=== PATIENT | male | born 1940 | race Caucasian/White ===

== ENCOUNTER 2023-02-26 18:38 | Observation (INO) | payer MEDICARE ==
--- NOTE | 2023-02-26 19:22 | ED ---
Fall HPI - General Chief Complaint: Fall Stated Complaint: Syncope Time Seen by Provider: 02/26/23 18:40 Source: EMS Mode of arrival: EMS - History of Present Illness Initial Comments: 82-year-old male past medical history significant for hypertension presenting to the ED with a chief complaint of fall. Patient states he was helping his son move furniture earlier today. States that they were on a dirt road which was muddy causing him to slip and fall onto the ground. Patient notes that he hurt his left ankle due to the fall. Denies head injury at this time. Patient is n ot on blood thinners. States after he got up and continued to help his son move furniture however patient stated that he felt "odd". States that after helping his son move furniture he sat down and notes that he then started to get dizzy. He is unable to describe whether this felt as if he was near syncopal, the room was spinning, or if he felt off balance. States that this sensation lasted from 10-15 minutes. There is no chest pain noted at this time. There was no shortness of breath. No palpitations at this time. Per EMS, upon arrival patient was sitting in his chair and appeared diaphoretic. EMS noted patient to have an abnormal rhythm strip and brought the patient here for further evaluation. Patient states otherwise over the past few days has been feeling well. No abdominal pain. No other complaints. Per family, patient did have prior history or he was told he had an abnormality on his EKG and was advised to wear a Holter monitor however is unsure of what came from this testing. Patient is unsure of who his medicaid service coordinator is. - Related Data Allergies Allergy/AdvReac Type Severity Reaction Status Date / Time meperidine [From Demerol] Allergy Unknown Verified 02/26/23 19:01 Review of Systems ROS Statement: Those systems with pertinent positive or pertinent negative responses have been documented in the HPI. ROS Other: All systems not noted in ROS Statement are negative. Past Medical History Past Medical History: Hypertension, Thyroid Disorder History of Any Multi-Drug Resistant Organisms: None Reported Past Surgical History: No Surgical Hx Reported Past Psychological History: No Psychological Hx Reported Smoking Status: Never smoker Past Alcohol Use History: None Reported Past Drug Use History: None Reported General Exam Limitations: no limitations General appearance: alert, in no apparent distress Eye exam: Present: normal appearance Respiratory exam: Present: normal lung sounds bilaterally Cardiovascular Exam: Present: regular rate, normal rhythm GI/Abdominal exam: Present: soft (Tenderness to palpation. No rebound guarding or rigidity.) Extremities exam: Present: other (Strength and sensation of bilateral lower extremities. DP/PT pulses intact. Strength and sensation intact of bilateral upper extremities. Patient does note some tenderness to palpation of the lateral aspect of the foot and lateral malleolus however no step-off, crepitus, or obvious deformity.) Neurological exam: Present: alert, oriented X3, CN II-XII intact (Finger to nose, rapid alternate hand movements, [id number] intact.) Skin exam: Present: warm, dry Course Vital Signs 02/26/23 02/26/23 02/26/23 18:40 18:47 19:00 Pulse Rate 74 58 L 60 Respiratory 20 Rate Blood Pressure 132/89 116/89 O2 Sat by Pulse 98 97 Oximetry 02/26/23 02/26/23 19:15 19:30 Pulse Rate 64 65 Respiratory Rate Blood Pressure 121/73 117/85 O2 Sat by Pulse 95 96 Oximetry Medical Decision Making - Medical Decision Making Was pt. sent in by a medical professional or institution (, PA, SPECIFICATION CONSULTANT, urgent care, hospital, or [facility]...) When possible be specific @ -No Did you speak to anyone other than the patient for history (EMS, parent, family, police, friend...)? What history was obtained from this source @ -To both the patient and family. For further details please see HPI. Did you review nursing and triage notes (agree or disagree)? Why? @ -I reviewed and agree with nursing and triage notes Were old charts reviewed (outside hosp., previous admission, EMS record, old EKG, old radiological studies, urgent care reports/EKG's, [facility] records)? Report findings @ -No old charts were reviewed Differential Diagnosis (chest pain, altered mental status, abdominal pain women, abdominal pain men, vaginal bleeding, weakness, fever, dyspnea, syncope, headache, dizziness, GI bleed, back pain, seizure, CVA, palpatations, mental health, musculoskeletal)? @ -Differential Musculoskeletal Muscular strain, contusion, ligament sprain, fracture, arthritis, septic arthritis, bursitis, cellulitis, muscle spasm, nerve compression, DVT, arterial occlusion, herpes zoster, electrolyte abnormality, tumor.... This is not meant to be in all inclusive list Differential Chest Pain: Stable Angina, Unstable Angina, STEMI, NSTEMI Aortic Dissection, Pneumothorax, Musculoskeletal, Esophageal Spasm GERD, Cholecystitis, Pancreatitis, Zoster, this is not meant to be an all-inclusive list. EKG interpreted by me (3pts min.). @ -As above X-rays interpreted by me (1pt min.). @ -X-ray of the left ankle shows oblique distal fibula fracture minimally offset by 2 mm. X-ray shows no evidence of definite acute process X-rays interpreted by me CT interpreted by me (1pt min.). @ -None done U/S interpreted by me (1pt. min.). @ -None done What testing was considered but not performed or refused? (CT, X-rays, U/S, labs)? Why? @ -None What meds were considered but not given or refused? Why? @ -None Did you discuss the management of the patient with other professionals (professionals i.e. , PA, SPECIFICATION CONSULTANT, lab, RT, psych nurse, high school social studies tutor, o and m supervisor, teacher, [employer]oc airspace control officer, case aide)? Give summary @ -Case discussed with Dr. Villatoro, who accepted admission Was smoking cessation discussed for >3mins.? @ -No Was critical care preformed (if so, how long)? @ -No Were there social determinants of health that impacted care today? How? (H omelessness, low income, unemployed, alcoholism, drug addiction, transportation, low edu. Level, literacy, decrease access to med. care, intermediate, rehab)? @ -No Was there de-escalation of care discussed even if they declined (Discuss DNR or withdrawal of care, Hospice)? DNR status @ -No What co-morbidities impacted this encounter? (DM, HTN, Smoking, COPD, CAD, Cancer, CVA, ARF, Chemo, Hep., AIDS, mental health diagnosis, sleep apnea, morbid obesity)? @ -Hypertension Was patient admitted / discharged? Hospital course, mention meds given and route, prescriptions, significant lab abnormalities, going to OR and other pertinent info. @ -Admission 82-year-old male initially presenting to the ED with left ankle injury however upon EMS arrival patient noted to be diaphoretic and dizzy. Patient does admit to a cardiac history with prior evaluation however is unsure of what this evaluation yielded. Currently denies chest pain or shortness of breath and says that his dizziness/"odd" sensation are resolved. Laboratory evaluation at this time including CBC, CMP, troponin largely unremarkable. X-ray of the left ankle did show an oblique fracture of the distal fibula minimally offset by 2 mm. Initially walking boot was to be applied however none available in the department. Posterior splint applied. X-ray unremarkable for acute process. Due to symptoms and nonspecific EKG, patient admitted to observation with consult to cardiology. Discussed plan of care with patient and family who are agreeable. Undiagnosed new problem with uncertain prognosis? @ -No Drug Therapy requiring intensive monitoring for toxicity (Heparin, Nitro, Insulin, Cardizem)? @ -No Were any procedures done? @ -No Diagnosis/symptom? @ -Left fibular fracture, dizziness Acute, or Chronic, or Acute on Chronic? @ -Acute Uncomplicated (without systemic symptoms) or Complicated (systemic symptoms)? @ -Complicated Side effects of treatment? @ -No Exacerbation, Progression, or Severe Exacerbation? @ -No Poses a threat to life or bodily function? How? (Chest pain, USA, CT, pneumonia, PE, COPD, DKA, ARF, appy, cholecystitis, CVA, Diverticulitis, Homicidal, Antunez icidal, threat to staff... and all critical care pts) @ -Possibly - Lab Data Result diagrams: 02/26/23 19:10 02/26/23 19:10 Lab Results 02/26/23 02/26/23 02/26/23 Range/Units 19:10 19:10 19:10 WBC 10.3 (3.8-10.6) k/uL RBC 5.60 (4.30-5.90) m/uL Hgb 16.1 (13.0-17.5) gm/dL Hct 49.2 (39.0-53.0) % MCV 87.8 (80.0-100.0) fL MCH 28.8 (25.0-35.0) pg MCHC 32.8 (31.0-37.0) g/dL RDW 13.7 (11.5-15.5) % Plt Count 249 (150-450) k/uL MPV 8.5 Neutrophils % 75 % Lymphocytes % 14 % Monocytes % 7 % Eosinophils % 1 % Basophils % 1 % Neutrophils # 7.8 H (1.3-7.7) k/uL Lymphocytes # 1.4 (1.0-4.8) k/uL Monocytes # 0.8 (0-1.0) k/uL Eosinophils # 0.1 (0-0.7) k/uL Basophils # 0.1 (0-0.2) k/uL PT (10.0-12.5) sec INR (<1.2) APTT (22.0-30.0) sec Sodium 137 (137-145) mmol/L Potassium 3.9 (3.5-5.1) mmol/L Chloride 101 (98-107) mmol/L Carbon Dioxide 25 (22-30) mmol/L Anion Gap 11 mmol/L BUN 16 (9-20) mg/dL Creatinine 1.12 (0.66-1.25) mg/dL Est GFR (CKD-EPI)AfAm 71 (>60 ml/min/1.73 sqM) Est GFR (CKD-EPI)NonAf 61 (>60 ml/min/1.73 sqM) Glucose 104 H (74-99) mg/dL Calcium 9.5 (8.4-10.2) mg/dL Magnesium 2.1 (1.6-2.3) mg/dL Total Bilirubin 0.5 (0.2-1.3) mg/dL AST 34 (17-59) U/L ALT 23 (4-49) U/L Alkaline Phosphatase 131 H (38-126) U/L Troponin I <0.012 (0.000-0.034) ng/mL Total Protein 7.6 (6.3-8.2) g/dL Albumin 4.3 (3.5-5.0) g/dL 02/26/23 Range/Units 21:03 WBC (3.8-10.6) k/uL RBC (4.30-5.90) m/uL Hgb (13.0-17.5) gm/dL Hct (39.0-53.0) % MCV (80.0-100.0) fL MCH (25.0-35.0) pg MCHC (31.0-37.0) g/dL RDW (11.5-15.5) % Plt Count (150-450) k/uL MPV Neutrophils % % Lymphocytes % % Monocytes % % Eosinophils % % Basophils % % Neutrophils # (1.3-7.7) k/uL Lymphocytes # (1.0-4.8) k/uL Monocytes # (0-1.0) k/uL Eosinophils # (0-0.7) k/uL Basophils # (0-0.2) k/uL PT 10.0 (10.0-12.5) sec INR 0.9 (<1.2) APTT 21.5 L (22.0-30.0) sec Sodium (137-145) mmol/L Potassium (3.5-5.1) mmol/L Chloride (98-107) mmol/L Carbon Dioxide (22-30) mmol/L Anion Gap mmol/L BUN (9-20) mg/dL Creatinine (0.66-1.25) mg/dL Est GFR (CKD-EPI)AfAm (>60 ml/min/1.73 sqM) Est GFR (CKD-EPI)NonAf (>60 ml/min/1.73 sqM) Glucose (74-99) mg/dL Calcium (8.4-10.2) mg/dL Magnesium (1.6-2.3) mg/dL Total Bilirubin (0.2-1.3) mg/dL AST (17-59) U/L ALT (4-49) U/L Alkaline Phosphatase (38-126) U/L Troponin I (0.000-0.034) ng/mL Total Protein (6.3-8.2) g/dL Albumin (3.5-5.0) g/dL - EKG Data EKG Comments: AG shows a sinus rhythm with right bundle branch LOC with nonspecific ST and T- wave changes. ME 199, QRS 125, QT/QTc 422/441. Disposition Clinical Impression: Fibula fracture, Dizziness Disposition: ADMITTED IP TO THIS [facility] Condition: Good Referrals: Nonstaff,Physician [Primary Care Provider] - 1-2 days
[2023-02-26 19:57] LABS: Basophils # (A) 0.1 k/uL (0-0.2); Basophils % (A) 1 %; Eosinophils # (A) 0.1 k/uL (0-0.7); Eosinophils % (A) 1 %; HCT 49.2 % (39.0-53.0); HGB 16.1 gm/dL (13.0-17.5); Lymphocytes # (A) 1.4 k/uL (1.0-4.8); Lymphocytes % (A) 14 %; MCH 28.8 pg (25.0-35.0); MCHC 32.8 g/dL (31.0-37.0); MCV 87.8 fL (80.0-100.0); Mean Platelet Volume 8.5; Monocytes # (A) 0.8 k/uL (0-1.0); Monocytes % (A) 7 %; Neutrophils # (A) 7.8 k/uL (1.3-7.7); Neutrophils % (A) 75 %; Platelet Count 249 k/uL (150-450); RDW 13.7 % (11.5-15.5); WBC 10.3 k/uL (3.8-10.6)
--- NOTE | 2023-02-26 20:13 | XR ---
EXAMINATION TYPE: XR chest 2V DATE OF EXAM: 02/26/2023 COMPARISON: None HISTORY: 82-year-old male with syncopal episode with fall, chest pain TECHNIQUE: AP and lateral views FINDINGS: Low lung volumes. Lordotic positioning. Some strandy atelectasis in the lower lungs. Heart normal siz e. Aorta and pulmonary vasculature within normal limits. No consolidation or pleural effusion. Loss o f the subacromial space on both sides suggesting underlying chronic rotator cuff tears. IMPRESSION: Limited lordotic view. Some hypoventilatory changes. No definite acute process.
[2023-02-26 20:20] LABS: ALT 23 U/L (4-49); AST 34 U/L (17-59); African American GFR (CKD) 71 (>60 ml/min/1.73 sqM); Albumin 4.3 g/dL (3.5-5.0); Alkaline Phosphatase 131 U/L (38-126); Anion Gap 11 mmol/L; Blood Urea Nitrogen 16 mg/dL (9-20); Calcium 9.5 mg/dL (8.4-10.2); Carbon Dioxide 25 mmol/L (22-30); Chloride 101 mmol/L (98-107); Glucose 104 mg/dL (74-99); Magnesium 2.1 mg/dL (1.6-2.3); Non-African American GFR(CKD) 61 (>60 ml/min/1.73 sqM); Potassium 3.9 mmol/L (3.5-5.1); Sodium 137 mmol/L (137-145); Total Bilirubin 0.5 mg/dL (0.2-1.3); Total Protein 7.6 g/dL (6.3-8.2)
--- NOTE | 2023-02-26 20:31 | XR ---
EXAMINATION TYPE: XR ankle complete 3 views LT DATE OF EXAM: 02/26/2023 Comparison: None Clinical History: 82-year-old male pain after fall. Findings: There is an oblique fracture of the distal fibula minimally offset by 2 mm. Minimal degenerative spur ring inferior tip of the medial malleolus and anterior aspect of the distal tibia at the tibial talar joint. Talar dome is intact. No acute fracture, subluxation, dislocation. Impression: Oblique fracture distal fibula minimally off set by 2 mm.
[2023-02-26 21:42] LABS: INR 0.9 (<1.2)
[2023-02-26 21:48] LABS: Partial Thromboplastin Time 21.5 sec (22.0-30.0)
[2023-02-26] MEDS ORDERED: NALOXONE 0.4 MG/ML 1 ML VIAL IV PRN (22:06)
[2023-02-26] MEDS ORDERED: HYDROmorphone 1 MG/ML 1 ML SYRINGE IVP PRN (22:06)
[2023-02-26] MEDS ORDERED: ACETAMINOPHEN TAB 325 MG TAB PO PRN (22:06)
[2023-02-27] MEDS: SODIUM CHLORIDE 0.9% 1,000 ML IV SCH ×3 (02:51→16:04)
--- NOTE | 2023-02-27 03:15 | P.HPIM ---
History of Present Illness H&P Date: 02/26/23 Chief Complaint: fall 82 year old male with hypertension patient was helping grandson move a chair, when he slipped while walking on mud, he was not carrying anything, however, he got up and helped with moving the chair with no limitations. he denies any chest pain SOB, however, while resting inside the house after moving the chair, he started feeling nauseated and became diaphoretic, his daughter notified EMS, who found abnormal rhythm patient denies any cardiac workup in the past, but recalls while doing his cataract surgery that he was told something wrong with his heart rhythm, but failed to follow up with cardiology he denies any head injury , or blood thinners, denies any recent hospital stay, he claims to be iin good health, denies any URI symptoms , denies any bleeding , bowel or urinary changes , denies any headache or focal neuro deficits review of systems Pertinent positives as noted in HPI. All other systems were reviewed and are negative on exam Constitutional: No acute distress, conversant, pleasant Eyes: Anicteric sclerae, moist conjunctiva, Pupils equal round reactive to light ENMT: NC/AT Oropharynx clear, no erythema, or exudates Neck: Supple, no masses, or JVD No carotid bruits No thyromegaly Lungs: Clear to auscultation Clear to percussion Normal respiratory effort, no accessory muscle use Cardiovascular: Heart regular in rate and rhythm, No murmurs, gallops, or rubs No peripheral edema Abdominal: Soft Nontender, no guarding, rebound or rigidity Abdomen moving with respiration Normoactive bowel sounds No hepatomegaly, No splenomegaly No palpable mass No abdominal wall hernia noted Extremities: back splint left leg, No digital cyanosis No clubbing Pedal pulses intact and symmetrical Radial pulses intact and symmetrical No calf tenderness Psychiatric: Alert and oriented to person, place and time Appropriate affect fair judgement Neuro Muscles Strength 5/5 in all 4 extremities Sensation to light touch grossly present throughout Cranial nerves II-XII grossly intact Lymphatics: no palpable cervical or supraclavicular lymph nodes Past Medical History Past Medical History: Hypertension, Thyroid Disorder History of Any Multi-Drug Resistant Organisms: None Reported Past Surgical History: No Surgical Hx Reported Past Anesthesia/Blood Transfusion Reactions: No Reported Reaction Past Psychological History: No Psychological Hx Reported Smoking Status: Never smoker Past Alcohol Use History: None Reported Past Drug Use History: None Reported Medications and Allergies Allergies Allergy/AdvReac Type Severity Reaction Status Date / Time meperidine [From Demerol] Allergy Unknown Verified 02/26/23 19:01 Physical Exam Vitals: Vital Signs Temp Pulse Pulse Resp BP BP Pulse Ox 02/26/23 23:34 97.6 F 70 16 146/89 97 02/26/23 22:41 67 18 130/78 96 02/26/23 22:15 70 02/26/23 22:00 70 02/26/23 21:45 81 02/26/23 21:30 84 02/26/23 21:15 92 130/87 02/26/23 21:00 88 135/87 95 02/26/23 20:30 80 128/90 95 02/26/23 20:15 71 96 02/26/23 19:45 66 127/83 96 02/26/23 19:30 65 117/85 96 02/26/23 19:15 64 121/73 95 02/26/23 19:00 60 116/89 97 02/26/23 18:47 58 L 02/26/23 18:40 74 20 132/89 98 Intake and Output 02/26/23 02/26/23 02/27/23 14:59 22:59 06:59 Other: Weight 92.986 kg 92.986 kg Results CBC & Chem 7: 02/26/23 19:10 02/26/23 19:10 Labs: Abnormal Lab Results - Last 24 Hours (Table) 02/26/23 02/26/23 02/26/23 Range/Units 19:10 19:10 21:03 Neutrophils # 7.8 H (1.3-7.7) k/uL APTT 21.5 L (22.0-30.0) sec Glucose 104 H (74-99) mg/dL Alkaline Phosphatase 131 H (38-126) U/L Thrombosis Risk Factor Assmnt - Choose All That Apply Each Factor Represents 1 point: Obesity (BMI >25) Other Risk Factors: No Each Risk Factor Represents 3 Points: Age 75 years or older Other congenital or acquired thrombophilia - If yes, enter type in comment: No Thrombosis Risk Factor Assessment Total Risk Factor Score: 4 Thrombosis Risk Factor Assessment Level: Moderate Risk Assessment and Plan Assessment: 82 year old male with hypertension , coming in after a fall, experiencing diaphoresis and EMS noted abnormal rhythm I discussed the case with ED doc and I accepted the admission for cardiac workup with anticipated length of stay < 2 midnights nausea and diaphoresis with ? 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 hypertension controlled unknown home meds fall with left distal fibular fracture non weight bearing , s/p splint Oblique, fracture left distal fibula with offset 2 mm OP follow up with ortho pain control with opiates renal function unremarkable BUN 16, Cr 1.1 Hgb 16, WBC 10 full code DVT PPX heparin sc tid
[2023-02-27 06:45] LABS: Appearance,Urine Clear (Clear); Bilirubin,Urine Negative (Negative); Blood,Urine Negative (Negative); Color,Urine Light Yellow; Glucose,Urine (UA) Negative (Negative); Ketones,Urine Negative (Negative); Leukocyte Esterase,Urine Trace (Negative); Mucus,Urine Rare /hpf; Nitrite,Urine Negative (Negative); PH, Urine 5.5 (5.0-8.0); Protein,Urine Negative (Negative); RBC,Urine <1 /hpf (0-5); Specific Gravity,Urine 1.013 (1.001-1.035); Urobilinogen,Urine <2.0 mg/dL (<2.0); WBC,Urine 5 /hpf (0-5)
[2023-02-27] MEDS: HYDROmorphone 0.5 MG/0.5 ML SYRINGE IVP PRN ×2 (08:36→22:15)
[2023-02-27] MEDS: HEPARIN SODIUM,PORCINE 5,000 UNIT/ML 1 ML VIAL SQ SCH ×3 (08:41→22:15)
--- NOTE | 2023-02-27 12:38 | P.PN ---
Subjective Progress Note Date: 02/27/23 82-year-old male presents the ED after mechanical fall while attempting to help his grandson move the chair. Shortly after, he experience diaphoresis and nausea while resting at home. He denies any chest pain, shortness of breath or palpitations. In the ED, he underwent extensive evaluation. Vital signs were stable. CBC was benign. INR 0.9. CMP glucose 104, alkaline phosphatase 131. Troponin less than 0.0123. Urinalysis trace leukocyte esterase. EKG sinus rhythm with PVCs and right bundle branch block. Chest x-ray negative. Ankle x-ray oblique fracture distal fibula. 02/27 Patient seen and examined at bedside. He reports well-controlled pain in his left ankle. No more diaphoresis or nausea. Denies any chest pain, shortness breath or palpitations. Vital signs reviewed General: no distress, appears at stated age Derm: warm, dry Eyes: EOMI, no lid lag, anicteric sclera ENT: Nose and ears atraumatic Cardiovascular: Normal S1 S2. Good distal perfusion in all 4 extremities Lungs: CTA BL, Breathing comfortably, no accessory muscle use Ext: no gross muscle atrophy, no contractures Neuro: no focal neuro deficits Psych: Alert, oriented, appropriate affect Based on my assessment of this patient, this patient meets a moderate complexity level of care. Patient has an acute complaint of diaphoresis and nausea in the setting of a mechanical fall which resulted in a left fibular fracture which poses a threat to life or bodily function. Diaphoresis and nausea: ACS ruled out. Telemetry monitoring. Echo ordered. Cardiology consulted. Left fibular fracture: Orthopedic consult. PT and OT consult. Hypertension CODE STATUS: FULL CODE DVT Prophylaxis: Heparin SQ GI Prophylaxis: Designated medical POA if patient is not able to make medical decisions for themselves: I have reviewed the following search engine optimization consultant notes: I have reviewed the results of the following tests: Troponins. I have ordered the following tests: Agree with Echo. I have discussed the care of this patient with the following independent historian: I have independently interpreted the following test below: I have discussed the management of this patient with the following physician: Objective - Vital Signs Vital signs: Vital Signs Temp 97.4 F L 02/27/23 06:50 Pulse 72 02/27/23 09:25 Resp 16 02/27/23 08:00 BP 132/82 02/27/23 09:25 Pulse Ox 96 02/27/23 09:25 FiO2 Intake & Output 02/26/23 02/27/23 02/27/23 18:59 06:59 18:59 Output Total 450 Balance -450 Weight 92.986 kg 92.986 kg Output: Urine 450 Other: Voiding Method Urinal Urinal - Labs CBC & Chem 7: 02/26/23 19:10 02/26/23 19:10 Labs: Abnormal Lab Results - Last 24 Hours (Table) 02/26/23 02/26/23 02/26/23 Range/Units 19:10 19:10 21:03 Neutrophils # 7.8 H (1.3-7.7) k/uL APTT 21.5 L (22.0-30.0) sec Glucose 104 H (74-99) mg/dL Alkaline Phosphatase 131 H (38-126) U/L Ur Leukocyte Esterase (Negative) Urine Mucus (None) /hpf 02/27/23 Range/Units 05:58 Neutrophils # (1.3-7.7) k/uL APTT (22.0-30.0) sec Glucose (74-99) mg/dL Alkaline Phosphatase (38-126) U/L Ur Leukocyte Esterase Trace H (Negative) Urine Mucus Rare H (None) /hpf
--- NOTE | 2023-02-27 13:10 | P.CRDCN ---
History of Present Illness History of present illness: This is Dr. Iniguez dictating a consult on this patient The patient was interviewed and examined IMPRESSION / ASSESSMENT: Elderly gentleman with an underlying right bundle branch block left anterior fascicular block Fall and injury but without loss of consciousness Hypertension, well controlled PLAN: Patient is stable for cardio vascular standpoint he did this was not syncope. 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 HPI 82-year-old male patient who was helping his son move furniture, slipped and fell in the mud sideways His twisted his leg and has a spiral fibular fracture He categorically denies any loss of consciousness No chest pain prior to that no palpitations Twelve-lead EKG shows sinus rhythm heart rate 70 beats a minute right bundle branch block pattern nonspecific ST-T changes Follow-up 12 EKG shows sinus mechanism with PACs and atrial couplets, left anterior fascicular block right bundle branch block Troponin 3 are normal ROS: No fever chills or rigors, no cough, phlegm or expectoration, no nausea, vomiting or diarrhea, no hematuria, dysuria, no musculoskeletal complaints, no strokes or seizures, no skin lesions. EXAMINATION: Normal blood pressure 126 ohms and family in his mercury respirations normal Pulse rate normal Afebrile Normal heart sounds no murmurs Breath sounds are clear REVIEW OF LABS, ECG & MEDICAL DATA normal white count Normal hemoglobin Normal platelet count Normal electrolytes, magnesium Past Medical History Past Medical History: Hypertension, Thyroid Disorder History of Any Multi-Drug Resistant Organisms: None Reported Past Surgical History: No Surgical Hx Reported Past Anesthesia/Blood Transfusion Reactions: No Reported Reaction Past Psychological History: No Psychological Hx Reported Smoking Status: Never smoker Past Alcohol Use History: None Reported Past Drug Use History: None Reported Medications and Allergies Home Medications Medication Instructions Recorded Confirmed Type Levothyroxine Sodium [Synthroid] 75 mcg PO DAILY 02/27/23 02/27/23 History Losartan Potassium [Cozaar] 100 mg PO DAILY 02/27/23 02/27/23 History Pravastatin Sodium [Pravachol] 20 mg PO DAILY 02/27/23 02/27/23 History hydroCHLOROthiazide 12.5 mg PO DAILY 02/27/23 02/27/23 History Allergies Allergy/AdvReac Type Severity Reaction Status Date / Time meperidine [From Demerol] Allergy Unknown Verified 02/27/23 10:44 Physical Exam Vitals: Vital Signs Temp Pulse Pulse Pulse Pulse Pulse Resp 02/27/23 09:25 54 L 83 72 02/27/23 08:00 67 16 02/27/23 06:50 97.4 F L 67 16 02/27/23 03:47 97.5 F L 65 16 02/27/23 03:05 70 16 02/26/23 23:34 97.6 F 70 16 02/26/23 22:41 67 18 02/26/23 22:15 70 02/26/23 22:00 70 02/26/23 21:45 81 02/26/23 21:30 84 02/26/23 21:15 92 02/26/23 21:00 88 02/26/23 20:30 80 02/26/23 20:15 71 02/26/23 19:45 66 02/26/23 19:30 65 02/26/23 19:15 64 02/26/23 19:00 60 02/26/23 18:47 58 L 02/26/23 18:40 74 20 BP BP BP BP BP Pulse Ox 02/27/23 09:25 146/70 132/81 132/82 96 02/27/23 08:00 02/27/23 06:50 129/68 95 02/27/23 03:47 126/75 96 02/27/23 03:05 02/26/23 23:34 146/89 97 02/26/23 22:41 130/78 96 02/26/23 22:15 02/26/23 22:00 02/26/23 21:45 02/26/23 21:30 02/26/23 21:15 130/87 02/26/23 21:00 135/87 95 02/26/23 20:30 128/90 95 02/26/23 20:15 96 02/26/23 19:45 127/83 96 02/26/23 19:30 117/85 96 02/26/23 19:15 121/73 95 02/26/23 19:00 116/89 97 12/24/23 18:47 02/26/23 18:40 132/89 98 Intake and Output 02/26/23 02/27/23 02/27/23 22:59 06:59 14:59 Output Total 450 Balance -450 Output: Urine 450 Other: Voiding Method Urinal Urinal Weight 92.986 kg 92.986 kg Results 02/26/23 19:10 02/26/23 19:10 Cardiac Enzymes 02/26/23 02/26/23 02/26/23 Range/Units 19:10 19:10 23:05 AST 34 (17-59) U/L Troponin I <0.012 <0.012 (0.000-0.034) ng/mL 02/27/23 Range/Units 02:53 AST (17-59) U/L Troponin I <0.012 (0.000-0.034) ng/mL Coagulation 02/26/23 Range/Units 21:03 PT 10.0 (10.0-12.5) sec APTT 21.5 L (22.0-30.0) sec CBC 02/26/23 Range/Units 19:10 WBC 10.3 (3.8-10.6) k/uL RBC 5.60 (4.30-5.90) m/uL Hgb 16.1 (13.0-17.5) gm/dL Hct 49.2 (39.0-53.0) % Plt Count 249 (150-450) k/uL Comprehensive Metabolic Panel 02/26/23 Range/Units 19:10 Sodium 137 (137-145) mmol/L Potassium 3.9 (3.5-5.1) mmol/L Chloride 101 (98-107) mmol/L Carbon Dioxide 25 (22-30) mmol/L BUN 16 (9-20) mg/dL Creatinine 1.12 (0.66-1.25) mg/dL Glucose 104 H (74-99) mg/dL Calcium 9.5 (8.4-10.2) mg/dL AST 34 (17-59) U/L ALT 23 (4-49) U/L Alkaline Phosphatase 131 H (38-126) U/L Total Protein 7.6 (6.3-8.2) g/dL Albumin 4.3 (3.5-5.0) g/dL Current Medications Generic Name Dose Route Start Last Admin Trade Name Freq PRN Reason Stop Dose Admin Acetaminophen 650 mg 02/26/23 22:06 Acetaminophen Tab 325 Mg Tab PO Q6HR PRN Mild Pain or Fever > 100.5 Heparin Sodium (Porcine) 5,000 unit 02/27/23 08:00 02/27/23 08:41 Heparin Sodium,Porcine 5,000 Unit/Ml 1 Ml Vial SQ 5,000 unit Q8HR WON Administration Hydrochlorothiazide 12.5 mg 02/28/23 09:00 Hydrochlorothiazide 12.5 Mg Cap PO DAILY WON Hydromorphone HCl 0.5 mg 02/26/23 22:06 02/27/23 08:36 Hydromorphone 0.5 Mg/0.5 Ml Syringe IVP 0.5 mg Q3HR PRN Administration Moderate Pain (Scale 4 to 6) Hydromorphone HCl 1 mg 02/26/23 22:06 Hydromorphone 1 Mg/Ml 1 Ml Syringe IVP Q3HR PRN Severe Pain (Scale 7 to 10) Sodium Chloride 1,000 mls @ 100 mls/hr 02/26/23 22:15 02/27/23 08:44 Saline 0.9% IV 100 mls/hr .Q10H WON Administration Levothyroxine Sodium 75 mcg 02/28/23 06:30 Levothyroxine 75 [place] 0630 WON Losartan Potassium 100 mg 02/28/23 09:00 Losartan 50 Mg Tab PO DAILY WON Naloxone HCl 0.2 mg 02/26/23 22:06 Naloxone 0.4 Mg/Ml 1 Ml Vial IV Q2M PRN Opioid Reversal Pravastatin Sodium 20 mg 02/28/23 09:00 Pravastatin Sodium 20 Mg Tab PO DAILY WON Intake and Output 02/26/23 02/27/23 02/27/23 22:59 06:59 14:59 Output Total 450 Balance -450 Output: Urine 450 Other: Voiding Method Urinal Urinal Weight 92.986 kg 92.986 kg 02/26/23 19:10 02/26/23 19:10
[2023-02-28] MEDS: SODIUM CHLORIDE 0.9% 1,000 ML IV SCH ×3 (05:24→23:32)
[2023-02-28] MEDS: LEVOTHYROXINE 75 MCG TAB PO SCH (05:41)
[2023-02-28] MEDS: LOSARTAN 50 MG TAB PO SCH (08:20)
[2023-02-28] MEDS: PRAVASTATIN SODIUM 20 MG TAB PO SCH (08:21)
[2023-02-28] MEDS: HEPARIN SODIUM,PORCINE 5,000 UNIT/ML 1 ML VIAL SQ SCH ×3 (08:21→23:31)
[2023-02-28] MEDS: hydroCHLOROthiazide 12.5 MG CAP PO SCH (08:21)
--- NOTE | 2023-02-28 12:53 | CA ---
Transthoracic Echo Report Name: Clarke Garibay Age: 82 Gender: M : 1940 Exam Date: 02/28/2023 08:55 Exam Location: [facility] Ht (in): 67 Wt (lb): 205 Ordering Physician: Anshul Massey Attending/Referring Phys: [employer] Janey Arreola RDCS Procedure CPT: Indications: dizziness/abnormal ECG Cardiac Hx: Technical Quality: Technically difficult study Contrast 1: Definity Total Dose (mL): 2 Contrast 2: Total Dose (mL): MEASUREMENTS (Male / Female) Normal Values 2D ECHO LV Diastolic Diameter PLAX 4.2 cm 4.2 - 5.9 / 3.9 - 5.3 cm LV Systolic Diameter PLAX 3.0 cm IVS Diastolic Thickness 1.3 cm 0.6 - 1.0 / 0.6 - 0.9 cm LVPW Diastolic Thickness 1.4 cm 0.6 - 1.0 / 0.6 - 0.9 cm LV Relative Wall Thickness 0.6 RV Internal Dim ED PLAX 3.7 cm M-MODE Aortic Root Diameter MM 3.5 cm LA Systolic Diameter MM 4.5 cm LA Ao Ratio MM 1.3 AV Cusp Separation MM 1.9 cm DOPPLER AV Peak Velocity 114.2 cm/s AV Peak Gradient 5.2 mmHg AV Mean Velocity 83.8 cm/s AV Mean Gradient 3.0 mmHg AV Velocity Time Integral 27.1 cm LVOT Peak Velocity 37.9 cm/s LVOT Peak Gradient 0.6 mmHg LVOT Velocity Time Integral 14.4 cm MV Area PHT 3.3 cm??? Mitral E Point Velocity 72.8 cm/s Mitral A Point Velocity 69.3 cm/s Mitral E to A Ratio 1.1 MV Deceleration Time 232.9 ms MV E' Velocity 5.5 cm/s Mitral E to MV E' Ratio 13.2 TR Peak Velocity 163.6 cm/s TR Peak Gradient 10.7 mmHg Right Ventricular Systolic Press 15.4 mmHg FINDINGS Left Ventricle Mildly increased left ventricular wall thickness. No obvious regional wall motion abnormalities. Left ventricular ejection fraction is estimated at 55 %. Right Ventricle Mild right ventricular dilatation. Right ventricular systolic pressure within normal limits. Right Atrium Normal right atrial size. Left Atrium Normal left atrial size. Mitral Valve Structurally normal mitral valve. Aortic Valve No aortic valve stenosis or regurgitation. Tricuspid Valve Structurally normal tricuspid valve. Pulmonic Valve Trace pulmonic regurgitation. Pericardium No pericardial effusion. Aorta Normal size aortic root and proximal ascending aorta. CONCLUSIONS Mild increased left ventricular wall thickness Left ventricular EF 55% Mild right ventricular dilation No mitral regurgitation No pericardial effusion Previewed by: Dr. Vamshi Lares DO (Electronically Signed) Final Date: 28 February 2023 12:53
--- NOTE | 2023-02-28 12:56 | P.PN ---
Subjective HPI 82-year-old male patient who was helping his son move furniture, slipped and fell in the mud sideways His twisted his leg and has a spiral fibular fracture He categorically denies any loss of consciousness No chest pain prior to that no palpitations Twelve-lead EKG shows sinus rhythm heart rate 70 beats a minute right bundle branch block pattern nonspecific ST-T changes Follow-up 12 EKG shows sinus mechanism with PACs and atrial couplets, left anterior fascicular block right bundle branch block Troponin 3 are normal 02/28 Patient seen and examined. Patient monitor overnight with no significant bradycardia, occasional nonconducted PACs without any significant pauses. He denies any lightheadedness. He is awaiting orthopedic evaluation. He is anxious to go home. PHYSICAL EXAMINATION Vital signs reviewed. CONSTITUTIONAL: No apparent distress. HEENT: Head is normocephalic. Pupils are equal, round. Sclerae anicteric. Mucous membranes of the mouth are moist. No JVD. No carotid bruit. CHEST EXAMINATION: Lungs are clear to auscultation. No chest wall tenderness is noted on palpation or with deep breathing. HEART EXAMINATION: Regular rate and rhythm. S1, S2 heard. No murmurs, gallops or rub. ABDOMEN: Soft, nontender. Positive bowel sounds. EXTREMITIES: 2+ peripheral pulses, no lower extremity edema and no calf tenderness. NEUROLOGIC EXAMINATION: Patient is awake, alert and oriented x3. IMPRESSION / ASSESSMENT: Elderly gentleman with an underlying right bundle branch block left anterior fascicular block Fall and injury but without loss of consciousness Hypertension, well controlled PLAN: Echocardiogram showing preserved EF without any significant valvular disease. Recommend outpatient event monitor can be placed as an outpatient. He states he actually slipped and no actual syncope. Stable for discharge home. Objective - Vital Signs Vital signs: Vital Signs Temp 97.6 F 02/28/23 07:00 Pulse 73 02/28/23 07:00 Resp 16 02/28/23 07:00 BP 125/78 02/28/23 07:00 Pulse Ox 95 02/28/23 07:00 FiO2 Intake & Output 02/27/23 02/28/23 02/28/23 18:59 06:59 18:59 Intake Total 451 Output Total 150 1075 Balance 301 -1075 Intake: Oral 451 Output: Urine 150 1075 Other: Voiding Method Urinal Urinal - Labs CBC & Chem 7: 02/26/23 19:10 02/26/23 19:10
--- NOTE | 2023-02-28 13:40 | P.PN ---
Subjective Progress Note Date: 02/28/23 82-year-old male presents the ED after mechanical fall while attempting to help his grandson move the chair. Shortly after, he experience diaphoresis and nausea while resting at home. He denies any chest pain, shortness of breath or palpitations. In the ED, he underwent extensive evaluation. Vital signs were stable. CBC was benign. INR 0.9. CMP glucose 104, alkaline phosphatase 131. Troponin less than 0.0123. Urinalysis trace leukocyte esterase. EKG sinus rhythm with PVCs and right bundle branch block. Chest x-ray negative. Ankle x-ray oblique fracture distal fibula. 02/27 Patient seen and examined at bedside. He reports well-controlled pain in his left ankle. No more diaphoresis or nausea. Denies any chest pain, shortness breath or palpitations. 02/28 Patient was seen and examined. No dizziness, chest pain, SOB or palpitations. Echo shows EF 55% with mild wall thickness. Ortho consultation pending. Hopeful discharge home after Ortho eval and PT clearance. Vital signs reviewed General: no distress, appears at stated age Derm: warm, dry Eyes: EOMI, no lid lag, anicteric sclera ENT: Nose and ears atraumatic Cardiovascular: Normal S1 S2. Good distal perfusion in all 4 extremities Lungs: CTA BL, Breathing comfortably, no accessory muscle use Ext: no gross muscle atrophy, no contractures Neuro: no focal neuro deficits Psych: Alert, oriented, appropriate affect Based on my assessment of this patient, this patient meets a moderate complexity level of care. Patient has an acute complaint of diaphoresis and nausea in the setting of a mechanical fall which resulted in a left fibular fracture which poses a threat to life or bodily function. Diaphoresis and nausea: ACS ruled out. Telemetry monitoring. Echo as above. Cardiology consulted, outPT Holter. Left fibular fracture: Orthopedic consult. PT and OT consult. Hypertension CODE STATUS: FULL CODE DVT Prophylaxis: Heparin SQ GI Prophylaxis: Designated medical POA if patient is not able to make medical decisions for t hemselves: I have reviewed the following consultant intern notes: I have reviewed the results of the following tests: Echo. I have ordered the following tests: I have discussed the care of this patient with the following independent historian: I have independently interpreted the following test below: I have discussed the management of this patient with the following physician: Objective - Vital Signs Vital signs: Vital Signs Temp 97.6 F 02/28/23 07:00 Pulse 73 02/28/23 07:00 Resp 16 02/28/23 07:00 BP 125/78 02/28/23 07:00 Pulse Ox 95 02/28/23 07:00 FiO2 Intake & Output 02/27/23 02/28/23 02/28/23 18:59 06:59 18:59 Intake Total 451 Output Total 150 1075 Balance 301 -1075 Intake: Oral 451 Output: Urine 150 1075 Other: Voiding Method Urinal Urinal - Labs CBC & Chem 7: 02/26/23 19:10 02/26/23 19:10
--- NOTE | 2023-02-28 15:33 | P.DS ---
Providers Date of admission: 02/26/23 22:06 Expected date of discharge: 02/28/23 Attending physician: Irish Villatoro MD Consults: 02/26/23 22:06 Consult Physician Urgent Consulting Provider: [facility] Consult Reason/Comments: Dizziness, abnormal EKG Do you want consulting provider notified?: Yes 02/27/23 09:32 Consult Physician Routine Consulting Provider: Obinna Cody Consult Reason/Comments: l fibula fracture oblique Do you want consulting provider notified?: Yes Primary care physician: Physician Nonstaff Hospital Course: 82-year-old male presents the ED after mechanical fall while attempting to help his grandson move the chair. Shortly after, he experience diaphoresis and nausea while resting at home. He denies any chest pain, shortness of breath or palpitations. In the ED, he underwent extensive evaluation. Vital signs were stable. CBC was benign. INR 0.9. CMP glucose 104, alkaline phosphatase 131. Troponin less than 0.0123. Urinalysis trace leukocyte esterase. EKG sinus rhythm with PVCs and right bundle branch block. Chest x-ray negative. Ankle x-ray oblique fracture distal fibula. 02/27 Patient seen and examined at bedside. He reports well-controlled pain in his left ankle. No more diaphoresis or nausea. Denies any chest pain, shortness breath or palpitations. 02/28 Patient was seen and examined. No dizziness, chest pain, SOB or palpitations. Echo shows EF 55% with mild wall thickness. Per RN, orthopedic Sx has ordered a cast boot and will follow the patient in the outpatient setting. Plans for discharge home today. Vital signs reviewed General: no distress, appears at stated age Derm: warm, dry Eyes: EOMI, no lid lag, anicteric sclera ENT: Nose and ears atraumatic Cardiovascular: Normal S1 S2. Good distal perfusion in all 4 extremities Lungs: CTA BL, Breathing comfortably, no accessory muscle use Ext: no gross muscle atrophy, no contractures Neuro: no focal neuro deficits Psych: Alert, oriented, appropriate affect Discharge Diagnosis: Diaphoresis and nausea: ACS ruled out. Telemetry monitoring. Echo as above. Cardiology consulted, outPT Holter. Left fibular fracture: Orthopedic outpatient. Hypertension This complex discharge took 35 minutes to complete. Patient Condition at Discharge: Good Plan - Discharge Summary Discharge Rx Participant: No New Discharge Prescriptions: No Action hydroCHLOROthiazide .5 mg PO DAILY Losartan Potassium [Cozaar] 100 mg PO DAILY Pravastatin Sodium [Pravachol] 20 mg PO DAILY Levothyroxine Sodium [Synthroid] 75 mcg PO DAILY Discharge Medication List Levothyroxine Sodium [Synthroid] 75 mcg PO DAILY 02/27/23 [History] Losartan Potassium [Cozaar] 100 mg PO DAILY 02/27/23 [History] Pravastatin Sodium [Pravachol] 20 mg PO DAILY 02/27/23 [History] hydroCHLOROthiazide 12.5 mg PO DAILY 02/27/23 [History] Follow up Appointment(s)/Referral(s): Obinna Cody DO [Doctor of Osteopathic Medicine] - 1 Week Nonstaff,Physician [Primary Care Provider] - 1-2 days Activity/Diet/Wound Care/Special Instructions: WBAT with walking boot F/U in office elevate and ice ankle
[2023-03-01] MEDS: LEVOTHYROXINE 75 MCG TAB PO SCH (06:09)
[2023-03-01] MEDS: LOSARTAN 50 MG TAB PO SCH (08:26)
[2023-03-01] MEDS: hydroCHLOROthiazide 12.5 MG CAP PO SCH (08:26)
[2023-03-01] MEDS: PRAVASTATIN SODIUM 20 MG TAB PO SCH (08:26)
[2023-03-01] MEDS: HEPARIN SODIUM,PORCINE 5,000 UNIT/ML 1 ML VIAL SQ SCH (08:28)
[2023-03-01 08:50] VITALS: RESP 16
--- NOTE | 2023-03-01 09:32 | P.DS ---
Providers Date of admission: 02/26/23 22:06 Expected date of discharge: 03/01/23 Attending physician: Irish Villatoro MD Consults: 02/26/23 22:06 Consult Physician Urgent Consulting Provider: [facility] Consult Reason/Comments: Dizziness, abnormal EKG Do you want consulting provider notified?: Yes 02/27/23 09:32 Consult Physician Routine Consulting Provider: Obinna Cody Consult Reason/Comments: l fibula fracture oblique Do you want consulting provider notified?: Yes Primary care physician: Physician Nonstaff Hospital Course: 82-year-old male presents the ED after mechanical fall while attempting to help his grandson move the chair. Shortly after, he experience diaphoresis and nausea while resting at home. He denies any chest pain, shortness of breath or palpitations. In the ED, he underwent extensive evaluation. Vital signs were stable. CBC was benign. INR 0.9. CMP glucose 104, alkaline phosphatase 131. Troponin less than 0.0123. Urinalysis trace leukocyte esterase. EKG sinus rhythm with PVCs and right bundle branch block. Chest x-ray negative. Ankle x-ray oblique fracture distal fibula. 02/27 Patient seen and examined at bedside. He reports well-controlled pain in his left ankle. No more diaphoresis or nausea. Denies any chest pain, shortness breath or palpitations. 02/28 Patient was seen and examined. No dizziness, chest pain, SOB or palpitations. Echo shows EF 55% with mild wall thickness. Per RN, orthopedic Sx has ordered a cast boot and will follow the patient in the outpatient setting. Plans for discharge home today. 03/01 Patient was seen and examined. No complaints. Orthopedic surgery recommended cast boot and outpatient follow up. Discharge held yesterday as patient was unable to obtain boot. Vital signs reviewed General: no distress, appears at stated age Derm: warm, dry Eyes: EOMI, no lid lag, anicteric sclera ENT: Nose and ears atraumatic Cardiovascular: Normal S1 S2. Good distal perfusion in all 4 extremities Lungs: CTA BL, Breathing comfortably, no accessory muscle use Ext: no gross muscle atrophy, no contractures Neuro: no focal neuro deficits Psych: Alert, oriented, appropriate affect Discharge Diagnosis: Diaphoresis and nausea: ACS ruled out. Telemetry monitoring. Echo as above. Cardiology consulted, outPT Holter. Left fibular fracture: Orthopedic outpatient. Hypertension This complex discharge took 35 minutes to complete. Patient Condition at Discharge: Stable Plan - Discharge Summary Discharge Rx Participant: No New Discharge Prescriptions: New Acetaminophen Tab [Tylenol] 650 mg PO Q6HR PRN tab PRN Reason: Mild Pain Or Fever > 100.5 HYDROcodone/APAP 5-325MG [[place] 5-325] 1 tab PO Q4HR PRN 3 Days #18 tab PRN Reason: Severe Breakthrough Pain Continue hydroCHLOROthiazide 12.5 mg PO DAILY Losartan Potassium [Cozaar] 100 mg PO DAILY Pravastatin Sodium [Pravachol] 20 mg PO DAILY Levothyroxine Sodium [Synthroid] 75 mcg PO DAILY Discharge Medication List Levothyroxine Sodium [Synthroid] 75 mcg PO DAILY 02/27/23 [History] Losartan Potassium [Cozaar] 100 mg PO DAILY 02/27/23 [History] Pravastatin Sodium [Pravachol] 20 mg PO DAILY 02/27/23 [History] hydroCHLOROthiazide 12.5 mg PO DAILY 02/27/23 [History] Acetaminophen Tab [Tylenol] 650 mg PO Q6HR PRN tab 02/28/23 [Rx] HYDROcodone/APAP 5-325MG [[place] 5-325] 1 tab PO Q4HR PRN 3 Days #18 tab 02/28/23 [Rx] Follow up Appointment(s)/Referral(s): Obinna Cody DO [Doctor of Osteopathic Medicine] - 1 Week Vamshi Lares DO [STAFF PHYSICIAN] - 1 Week Nonstaff,Physician [Primary Care Provider] - 1-2 days Activity/Diet/Wound Care/Special Instructions: WBAT with walking boot F/U in office elevate and ice ankle Discharge Disposition: HOME SELF-CARE
--- NOTE | 2023-03-01 09:42 | P.PN ---
Subjective HPI 82-year-old male patient who was helping his son move furniture, slipped and fell in the mud sideways His twisted his leg and has a spiral fibular fracture He categorically denies any loss of consciousness No chest pain prior to that no palpitations Twelve-lead EKG shows sinus rhythm heart rate 70 beats a minute right bundle branch block pattern nonspecific ST-T changes Follow-up 12 EKG shows sinus mechanism with PACs and atrial couplets, left anterior fascicular block right bundle branch block Troponin 3 are normal 02/28 Patient seen and examined. Patient monitor overnight with no significant bradycardia, occasional nonconducted PACs without any significant pauses. He denies any lightheadedness. He is awaiting orthopedic evaluation. He is anxious to go home. 03/01 Patient seen and examined. Patient with asymptomatic sinus bradycardia at night heart rates in the 40s to 50s. Denies any lightheadedness. He is awaiting the orthopedic boot. PHYSICAL EXAMINATION Vital signs reviewed. CONSTITUTIONAL: No apparent distress. HEENT: Head is normocephalic. Pupils are equal, round. Sclerae anicteric. Mucous membranes of the mouth are moist. No JVD. No carotid bruit. CHEST EXAMINATION: Lungs are clear to auscultation. No chest wall tenderness is noted on palpation or with deep breathing. HEART EXAMINATION: Regular rate and rhythm. S1, S2 heard. No murmurs, gallops or rub. ABDOMEN: Soft, nontender. Positive bowel sounds. EXTREMITIES: 2+ peripheral pulses, no lower extremity edema and no calf tenderness. NEUROLOGIC EXAMINATION: Patient is awake, alert and oriented x3. IMPRESSION / ASSESSMENT: Elderly gentleman with an underlying right bundle branch block left anterior fascicular block Fall and injury but without loss of consciousness Hypertension, well controlled PLAN: Echocardiogram showing preserved EF without any significant valvular disease. Recommend outpatient event monitor can be placed as an outpatient. He states he actually slipped and no actual syncope. No further recommendations from cardiology standpoint, please call with questions Objective - Vital Signs Vital signs: Vital Signs Temp 97.5 F L 03/01/23 07:00 Pulse 93 03/01/23 07:00 Resp 16 03/01/23 07:00 BP 121/74 03/01/23 07:00 Pulse Ox 95 03/01/23 07:00 FiO2 Intake & Output 02/28/23 03/01/2303/01/23 18:59 06:59 18:59 Intake Total 240 180 Output Total 550 225 Balance -310 -225 180 Intake: Oral 240 180 Output: Urine 550 225 Other: Voiding Method Urinal # Voids 1 # Bowel Movements 1 0 - Labs CBC & Chem 7: 02/26/23 19:10 02/26/23 19:10
[2023-03-01] MEDS: SODIUM CHLORIDE 0.9% 1,000 ML IV SCH (12:42)
[2023-03-01 14:44] VITALS: BP 116/70; PULSE 80; TEMP 97.7
== END 2023-03-01 16:50 | disposition home or self-care (01) ==
LOC: EC 18:38 → 6NMEDSUR 22:06
PROVIDERS: ADMIT Internal Medicine; ATTEND Internal Medicine
DX: R55 Syncope and collapse (principal); S82.44 Spiral fracture of shaft of fibula; S82.832A Other fracture of upper and lower end of left fibula, initial encounter for closed fracture; W01.0XXA Fall on same level from slipping, tripping and stumbling without subsequent striking against object, initial encounter; Z79.899 Other long term (current) drug therapy; Z79.890 Hormone replacement therapy; M00.9 Pyogenic arthritis, unspecified; K22.4 Dyskinesia of esophagus; K21.9 Gastro-esophageal reflux disease without esophagitis; I45.2 Bifascicular block; I49.1 Atrial premature depolarization; R11.2 Nausea with vomiting, unspecified; I10 Essential (primary) hypertension
CPT/HCPCS: 96365; 96366; 96372 ×4; 99285; 36415; 97162; 80053; 83735; 84484 ×2; 85025; 85610; 85730; 81001; 73610; 71046; G0378 ×4; C8929; J1644 ×2; Q9957; J1170; 93306